=== PATIENT | male | born 1970 | race Caucasian/White ===

== ENCOUNTER 2019-03-08 12:15 | Emergency (ER) | payer OTHER, BC ==
[~2019-03-08] VITALS: Ht 175.3 cm; Wt 81.2 kg
[~2019-03-08 12:15] MED LIST: ADVIL200 M1 PO; BACTRIM DS TAB1 EACH PO; CELECOXIB100 MG PO; ESCITALOPRAM OX10 MG PO; GABAPENTIN300 MG PO; KEFLEX500 MG PO; NORCO 5-325 TA1 EACH PO; ULTRAM50 MG PO
--- OUTSIDE RECORDS SUMMARY | 2019-03-08 12:18 | XMS ---
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 Rylee has no Care Guidelines for this patient. Paras VISIT COUNT (12 MO.) [facility] NOTE: Visits indicate total known visits. ED/C VISIT TRACKING (12 MO.) 03/08/2019 12:[facility] [place] TYPE: Emergency COMPLAINT: - RIGHT KNEE PAIN 03/04/2019 11:[address] [facility] [place] TYPE: Emergency COMPLAINT: - RIGHT KNEE PAIN, WC INJURY DIAGNOSES: - Unspecified injury of right lower leg, initial encounter - Unspecified injury of left lower leg, initial encounter - Nicotine dependence, unspecified, uncomplicated - Other bilingual customer service (current) drug therapy - Cellulitis of right lower limb INPATIENT VISIT TRACKING (12 MO.) No inpatient visits to display in this time frame [email or web address]
[2019-03-08] MEDS ORDERED: NORCO 5-325 TA1 EACH PO (15:15)
[2019-03-08] MEDS ORDERED: KEFLEX500 MG PO (15:15)
[2019-03-08] MEDS ORDERED: BACTRIM DS TAB1 EACH PO (15:15)
== END 2019-03-08 15:29 | disposition home or self-care (01) ==
LOC: ED 12:15
DX: L02.415 Cutaneous abscess of right lower limb (principal); L03.115 Cellulitis of right lower limb; F17.200 Nicotine dependence, unspecified, uncomplicated; Z79.899 Other long term (current) drug therapy
CPT/HCPCS: 10060; 76882; 80053; 85025; 99284-25; J0690; J1885; J3010

== ENCOUNTER 2019-03-15 17:21 | Emergency (ER) | payer OTHER, BC ==
[~2019-03-15] VITALS: Ht 175.3 cm; Wt 81.2 kg
--- OUTSIDE RECORDS SUMMARY | 2019-03-15 17:24 | XMS ---
PreManage Notification: VAHID NGO Security Director Of Home Care Hospice Events No recent Security Events currently on file CRITERIA MET - [facility] - 2 Visits in 30 Days CARE PROVIDERS TAO ENCINAS Nurse Practitioner: 03/09/2019-Current PHONE: Unknown Rylee has no Care Guidelines for this patient. Paras VISIT COUNT (12 MO.) 3 [facility] TOTAL 3 NOTE: Visits indicate total known visits. ED/C VISIT TRACKING (12 MO.) 03/15/2019 17:22 [facility] [place] TYPE: Emergency COMPLAINT: - WOUND CARE 03/08/2019 12:16 [facility] [place] TYPE: Emergency COMPLAINT: - RIGHT KNEE PAIN/SWELLING DIAGNOSES: - Other specified soft tissue disorders - Nicotine dependence, unspecified, uncomplicated - Other dedicated intermodal truck driver (current) drug therapy - Cutaneous abscess of right lower limb - Cellulitis of right lower limb 03/04/2019 11:22 [facility] [place] TYPE: Emergency COMPLAINT: - RIGHT KNEE PAIN, WC INJURY DIAGNOSES: - Unspecified injury of right lower leg, initial encounter - Unspecified injury of left lower leg, initial encounter - Nicotine dependence, unspecified, uncomplicated - Other dedicated intermodal truck driver (current) drug therapy - Cellulitis of right lower limb INPATIENT VISIT TRACKING (12 MO.) No inpatient visits to display in this time frame [id number]
== END 2019-03-15 18:21 | disposition home or self-care (01) ==
LOC: ED 17:21
DX: L02.415 Cutaneous abscess of right lower limb (principal); F17.200 Nicotine dependence, unspecified, uncomplicated; Z79.899 Other long term (current) drug therapy
CPT/HCPCS: 99282

== ENCOUNTER 2019-04-28 16:47 | Emergency (ER) | payer OTHER, BC ==
[~2019-04-28] VITALS: Ht 175.3 cm; Wt 81.2 kg
--- OUTSIDE RECORDS SUMMARY | ~2019-04-28 | XMS | Clinical Summary ---
Demographics + + + | Address | [address] | | | [place] [address] | + + + | Home Phone | | + + + | Preferred Language | Unknown | + + + | Marital Status | | + + + | Restorationism Affiliation | 1013 | + + + | Race | Unknown | + + + | Ethnic Group | Unknown | + + + Author + + + | Author | [facility] (Historical as of | | | 03-04-19) | + + + | Organization | [facility] (Historical as of | | | 03-04-19) | + + + | Address | Unknown | + + + | Phone | Unavailable | + + + Support + + + + + | Name | Relationship | Address | Phone | + + + + + | Yolanda Elliott | ECON | [place] | | | | | [address] | | + + + + + Care Team Providers + +------+ + | Care Twill Cutter Name | Role | Phone | + +------+ + | Heather Velazquez NP | PP | | + +------+ + Allergies Not on File Current Medications Not on file Active Problems Not on file Social History + +-------+ +--------+------+ | Tobacco Use | Types | Packs/Day | Years | Date | | | | | Used | | + +-------+ +--------+------+ | Never Assessed | | | | | + +-------+ +--------+------+ + + + | Sex Assigned at | Date Recorded | | | | + + + | Not on file | | + + + Plan of Treatment + + + + + | Health Maintenance | Due Date | Last Done | Comments | + + + + + | Vaccine: | | | | | Dtap/Tdap/Td (1 - | 9 | | | | Tdap) | | | | + + + + + | Vaccine: Influenza | | | | | (#1) | 9 | | | + + + + + Results Not on filefrom Last 3 Months Insurance + +--------+ +------+-------+ + | Payer | Benefi | Subscriber | Type | Phone | Address | | | t Plan | ID | | | | | | / | | | | | | | Group | | | | | + +--------+ +------+-------+ + | REGENCE | REGENC | [id number] | | | | | | E-OREG | 7 | | | | | | ON | | | | | + +--------+ +------+-------+ + | MEDICAID | EASTER | [id number] | | | [address] | | | N | | | | [place] | | | [place] | | | | [address] | | | FOREST RANGER TECHNICIAN | | | | | + +--------+ +------+-------+ + + +--------+ +--------+ + + | Guarantor Name | Accoun | Relation to | Date | Phone | Billing Address | | | t Type | Patient | of | | | | | | | | | | + +--------+ +--------+ + + | DALE NOG | Person | Self | [birth year] | Home: | [address] | | | [place] | | 1970 | [phone] | [place] | | | [place]y | | | [phone] | [phone] | + +--------+ +--------+ + +"
--- OUTSIDE RECORDS SUMMARY | ~2019-04-28 | XMS | Clinical Summary ---
Demographics + + + | Address | [address] | | | [place] [address] | + + + | Home Phone | | + + + | Preferred Language | Unknown | + + + | Marital Status | | + + + | Yazidism Affiliation | 1013 | + + + | Race | Unknown | + + + | Ethnic Group | Unknown | + + + Author + + + | Author | [facility] | | | and [place] | + + + | Organization | [facility] | | | and [place] | + + + | Address | Unknown | + + + | Phone | Unavailable | + + + Support + + + + + | Name | Relationship | Address | Phone | + + + + + | Yolanda Elliott | ECON | [place] | | | | | [phone] | | + + + + + Care Team Providers + +------+ + | Care Fast Food Fry Cook Name | Role | Phone | + +------+ + | Bakari Rasheed MD | PCP | | + +------+ + Allergies Not on File Medications Not on file Active Problems Not [...] on file | | + + + + + + + | Job Start Date | Occupation | Industry | + + + + | Not on file | Not on file | Not on file | + + + + + + + + | Travel History | Travel Start | Travel End | + + + + + + | No recent travel history available. | + + Last Filed Vital Signs Not on file Plan of Treatment + + + + [...] Not on filefrom Last 3 Months Insurance +-------+--------+ +--------+-------+---------+------+ | Payer | Benefi | Subscriber | Effect | Phone | Address | Type | | | t Plan | ID | abhi | | | | | | / | | Dates | | | | | | Group | | | | | | +-------+--------+ +--------+-------+---------+------+ | BCBS | BCBS | [id number] | 07/19/19 | | | PPO | | | OOS | 7 | 16-Pre | | | | | | PPO | | sent | | | | +-------+--------+ +--------+-------+---------+------+ + +--------+ +--------+ + + | Guarantor Name | Accoun | Relation to | Date | Phone | Billing Address | | | t Type | Patient | of | | | | | | | | | | + +--------+ +--------+ + + | Dale Scales | Person | Self | [birth year] | | [address] | | | [place] | | 1970 | [phone] | [place] | | | [place]y | | | [address] (Home) | [phone] | + +--------+ +--------+ + + Advance Directives Patient has advance care planning documents on file. For more information, please contact:[facility] [place] [address]"
--- OUTSIDE RECORDS SUMMARY | ~2019-04-28 | XMS | Clinical Summary ---
Demographics + + + | Address | [address] | | | [place] [address] | + + + | Home Phone | | + + + | Preferred Language | Unknown | + + + | Marital Status | | + + + | Sabianist Affiliation | 1013 | + + + | Race | Unknown | + + + | Ethnic Group | Unknown | + + + Author + + + | Author | [facility] (Historical as of | | | 03-04-19) | + + + | Organization | [facility] (Historical as of | | | 03-04-19) | + + + | Address | Unknown | + + + | Phone | Unavailable | + + + Support + + + + + | Name | Relationship | Address | Phone | + + + + + | Yolanda Elliott | ECON | [place] | | | | | [address] | | + + + + + Care Team Providers + +------+ + | Care Automation Lead Name | Role | Phone | + [...] +------+-------+ + | REGENCE | REGENC | [id number] | | | | | | E-[place] | 7 | | | | | | ON | | | | | + +--------+ +------+-------+ + | MEDICAID | EASTER | [id number] | | | [address] | | | N | | | | [place] | | | [place] | | | | [phone] | | | PARKING PATROLLER | | | | | + +--------+ +------+-------+ + + +--------+ +--------+ + + | Guarantor Name | Accoun | Relation to | Date | Phone | Billing Address | | | t Type | Patient | of | | | | | | | | | | + +--------+ +--------+ + + | DALE NGO | Person | Self | [birth year] | Home: | [address] | | | [place] | | 1970 | [phone] | [place] | | | [place] | | | [phone] | [phone] | + +--------+ +--------+ + +"
--- OUTSIDE RECORDS SUMMARY | ~2019-04-28 | XMS | Clinical Summary ---
Demographics + + + | Address | [address] | | | [place] [address] | + + + | Home Phone | | + + + | Preferred Language | Unknown | + + + | Marital Status | | + + + | Bahai Affiliation | 1013 | + + + | Race | Unknown | + + + | Ethnic Group | Unknown | + + + Author + + + | Author | [facility] | | | and [place] | + + + | Organization | [facility] | | | and [place] | + + + | Address | Unknown | + + + | Phone | Unavailable | + + + Support + + + + + | Name | Relationship | Address | Phone | + + + + + | Yolanda Elliott | ECON | [place] | | | | | [address] | | + + + + + Care Team Providers + +------+ + | Care Machine Inker Name | Role | Phone | + +------+ + | Bkaari Rasheed MD | PCP | | + [...] +-------+--------+ +--------+-------+---------+------+ | BCBS | BCBS | [id number] | 07/19/19 | | | PPO | [...] [place] | | | [address] (Home) | [phone] | + +--------+ +--------+ + + Advance Directives Patient has advance care planning documents on file. For more information, please contact:[facility] [place] [address]"
[~2019-04-28 16:47] MED LIST changes: -ESCITALOPRAM OX10 MG PO
--- OUTSIDE RECORDS SUMMARY | 2019-04-28 16:50 | XMS ---
PreManage Notification: VAHID NGO Security Fruit Cutter Events No recent Security Events currently on file CRITERIA MET - [facility] CARE PROVIDERS TAO ENCINAS Nurse Practitioner: 03/09/2019-Current PHONE: Unknown Rylee has no Care Guidelines for this patient. ENoa VISIT COUNT (12 MO.) 4 [facility] TOTAL 4 NOTE: Visits indicate total known visits. ED/UCC VISIT TRACKING (12 MO.) 04/28/2019 16:47 [facility] [place] TYPE: Emergency COMPLAINT: - HEAD INJURY 03/15/2019 17:22 [facility] [place] TYPE: Emergency COMPLAINT: - ABSCESS DIAGNOSES: - Cutaneous abscess of right lower limb - Other penitentiary (current) drug therapy - Nicotine dependence, unspecified, uncomplicated 03/08/2019 12:16 [facility] [place] TYPE: Emergency COMPLAINT: - RIGHT KNEE PAIN/SWELLING DIAGNOSES: - Other specified soft tissue disorders - Nicotine dependence, unspecified, uncomplicated - Other penitentiary (current) drug therapy - Cutaneous abscess of right lower limb - Cellulitis of right lower limb 03/04/2019 11:[address] [facility] [place] TYPE: Emergency COMPLAINT: - RIGHT KNEE PAIN, WC INJURY DIAGNOSES: - Unspecified injury of right lower leg, initial encounter - Unspecified injury of left lower leg, initial encounter - Nicotine dependence, unspecified, uncomplicated - Other termite treater (current) drug therapy - Cellulitis of right lower limb INPATIENT VISIT TRACKING (12 MO.) No inpatient visits to display in this time frame [email or web address]
[2019-04-28] MEDS ORDERED: ESCITALOPRAM OX10 MG PO (17:06)
== END 2019-04-28 19:00 | disposition home or self-care (01) ==
LOC: ED 16:47
DX: S09.90XA Unspecified injury of head, initial encounter (principal); S16.1XXA Strain of muscle, fascia and tendon at neck level, initial encounter; W17.89XA Other fall from one level to another, initial encounter; F17.200 Nicotine dependence, unspecified, uncomplicated; Z79.899 Other long term (current) drug therapy
CPT/HCPCS: 72040; 99283; A9270

== ENCOUNTER 2020-12-25 19:15 | Emergency (ER) | payer OTHER ==
[~2020-12-25] VITALS: Ht 175.3 cm; Wt 91.0 kg
[~2020-12-25 19:15] MED LIST changes: +AMITRIPTYLINE150 MG PO; +AZITHROMYCIN500 MG PO; +CEFPODOXIME PR200 MG PO; +ESCITALOPRAM OX10 MG PO; +GABAPENTIN600 MG PO
[2020-12-25] MEDS ORDERED: DICLOFENAC SODI75 MG PO (19:27)
== END 2020-12-25 20:48 | disposition home or self-care (01) ==
LOC: ED 19:15
DX: S61.411A Laceration without foreign body of right hand, initial encounter (principal); S00.31XA Abrasion of nose, initial encounter; Z23 Encounter for immunization; W22.8XXA Striking against or struck by other objects, initial encounter; F17.200 Nicotine dependence, unspecified, uncomplicated
CPT/HCPCS: 12002; 90471; 90715; 99282-25

== ENCOUNTER 2022-03-30 14:06 | Emergency (ER) | payer OTHER ==
[~2022-03-30] VITALS: Ht 175.3 cm; Wt 91.0 kg
[~2022-03-30 14:06] MED LIST changes: +DICLOFENAC SODI75 MG PO
--- OUTSIDE RECORDS SUMMARY | 2022-03-30 14:11 | XMS ---
PreManage Notification: VAHID NGO Security Air Lift Operator Events No recent Security Events currently on file [facility] MET [facility] TAO ENCINAS Nurse Practitioner: Family 03/09/2019-Current PHONE: Unknown BJ KOVACS [facility] Medicine 02/26/2020-Current PHONE: Unknown Rylee has no Care Guidelines for this patient. Care History Medical/Surgical 05/01/2019 [facility] - Patient is currently established with [facility]. If patient is seen in the ED during business hours. Please contact CHWs at [facility]. Care Recommendation: This patient has had 5 or more Emergency Department visits in the last 12 months.\T\nbsp; Patient requires education on the scope and purpose of the ED as an acute care provider not a Primary Care Provider and should not be utilized for chronic conditions.\T\nbsp; These are guidelines and the provider should exercise clinical judgment when providing care. E.D. VISIT COUNT (12 MO.) 1 [facility] TOTAL 1 NOTE: Visits indicate total known visits. ED/UCC VISIT TRACKING (12 MO.) 03/30/2022 14:07 [facility] [place] TYPE: Emergency COMPLAINT: - SHAKY SWEATY, NAUSEA, UNSTEADY GAIT INPATIENT VISIT TRACKING (12 MO.) No inpatient visits to display in this time frame [email or web address]
[2022-03-30] MEDS ORDERED: CELECOXIB100 MG PO (14:22)
[2022-03-30] MEDS ORDERED: HYDROXYZINE HCL50 MG PO (14:22)
--- NOTE | 2022-03-30 20:12 | EKG ---
[facility] [address] [place] [address] Signed Normal sinus rhythm Nonspecific intraventricular block Abnormal ECG When compared with ECG of 24-FEB-2020 11:56, QRS duration has increased Confirmed by OMID MENDOSA MD ([id number]) on 03/30/2022 8:11:44 PM Electronically Signed By: OMID MENDOSA MD 03/30/222011 PATIENT NAME: VAHID NGO ISAC Electrocardiogram DATE OF : 70 PHYSICIAN: OMID MENDOSA MD REPORT #: [id number] REPORT IS CONFIDENTIAL AND NOT TO BE RELEASED WITHOUT AUTHORIZATION
== END 2022-03-30 17:00 | disposition home or self-care (01) ==
LOC: ED 14:06
DX: T42.6X1A Poisoning by other antiepileptic and sedative-hypnotic drugs, accidental (unintentional), initial encounter (principal); R25.1 Tremor, unspecified; F17.200 Nicotine dependence, unspecified, uncomplicated; Z79.899 Other long term (current) drug therapy
CPT/HCPCS: 36415; 80053; 81001; 84439; 84443; 85025; 93005; 93010; 99284-25; G0480

== ENCOUNTER 2022-08-03 14:04 | Emergency (ER) | payer OTHER ==
[~2022-08-03] VITALS: Ht 175.3 cm; Wt 90.7 kg
[~2022-08-03 14:04] MED LIST changes: +HYDROXYZINE HCL50 MG PO
[2022-08-03] MEDS ORDERED: LEVOFLOXACIN500 MG PO (19:15)
== END 2022-08-03 19:30 | disposition home or self-care (01) ==
LOC: ED 14:04
DX: R10.31 Right lower quadrant pain (principal); J18.9 Pneumonia, unspecified organism; F17.200 Nicotine dependence, unspecified, uncomplicated; Z79.899 Other long term (current) drug therapy
CPT/HCPCS: 36415; 74176; 80053; 81003; 83690; 85025; 85060; 99284-25

== ENCOUNTER 2022-09-23 13:20 | Emergency (ER) | payer OTHER ==
[~2022-09-23] VITALS: Ht 175.3 cm; Wt 91.0 kg
[~2022-09-23 13:20] MED LIST changes: +LEVOFLOXACIN500 MG PO
--- OUTSIDE RECORDS SUMMARY | 2022-09-23 13:25 | XMS ---
PreManage Notification: VAHID NGO Security Sap Integration Architect Events No recent Security Events currently on file CRITERIA MET - [facility] CARE PROVIDERS -[place]- Dentist: Restrike Hammer Operator [facility] PHONE: [phone] TAO ENCINAS Nurse Practitioner: Family 03/09/2019-Current PHONE: Unknown BJ KOVACS [facility] Medicine 02/26/2020-Current PHONE: Unknown Rylee has no Care Guidelines for this patient. Care History Medical/Surgical 05/01/2019 [facility] - Patient is currently established with [facility]. If patient is seen in the ED during business hours. Please contact CHWs at [facility]. Care Recommendation: This patient has had 5 [...] providing care. E.D. VISIT COUNT (12 MO.) 3 [facility] TOTAL 3 NOTE: Visits indicate total known visits. ED/C VISIT TRACKING (12 MO.) 09/23/2022 13:22 [facility] [place] TYPE: Emergency COMPLAINT: - SOB, L SIDE RIB PAIN, DIZZY, SHAKY 08/03/2022 14:05 [facility] [place] TYPE: Emergency COMPLAINT: - SHAKY, R SIDE ABD PAIN, NAUSEA DIAGNOSES: - Right lower quadrant pain - Nicotine dependence, unspecified, uncomplicated - Other jail (current) drug therapy - Pneumonia, unspecified organism 03/30/2022 14:07 [facility] TYPE: Emergency COMPLAINT: - SHAKY SWEATY, NAUSEA, UNSTEADY GAIT DIAGNOSES: - Nicotine dependence, unspecified, uncomplicated - Other watermelon inspector (current) drug therapy - Poisoning by other antiepileptic and sedative-hypnotic drugs, accidental (unintentional), initial encounter - Tremor, unspecified INPATIENT VISIT TRACKING (12 MO.) No inpatient visits to display in this time frame [id number]
[2022-09-23] MEDS ORDERED: SLOW-MAG71.5 MG PO (16:18)
[2022-09-23] MEDS ORDERED: PREDNISONE20 MG PO (16:18)
[2022-09-23] MEDS ORDERED: ZITHROMAX250 MG PO (16:18)
--- NOTE | 2022-09-23 21:41 | EKG ---
[facility] [address] [facility] [place] [address] Signed Normal sinus rhythm Normal ECG When compared with ECG of 30-MAR-2022 14:12, QRS duration has decreased QT has shortened Confirmed by Ronan Cadet MD () on 09/23/2022 9:41:16 PM Electronically Signed By: ORNAN CADET MD 09/23/222140 PATIENT NAME: HUBERVAHID ISAC Electrocardiogram DATE OF : 70 PHYSICIAN: RONAN CADET MD REPORT #: [id number] REPORT IS CONFIDENTIAL AND NOT TO BE RELEASED WITHOUT AUTHORIZATION
== END 2022-09-23 16:40 | disposition home or self-care (01) ==
LOC: ED 13:20
DX: U07.1 COVID-19 (principal); J44.1 Chronic obstructive pulmonary disease with (acute) exacerbation; E83.42 Hypomagnesemia; F17.200 Nicotine dependence, unspecified, uncomplicated; Z79.899 Other long term (current) drug therapy
CPT/HCPCS: 36415; 71045; 80053; 83735; 84484; 85025; 87502; 93005; 93010; 94640; 94664; 96374; 99285-25; A9270; C9803; J1100; U0003

== ENCOUNTER 2022-10-02 10:01 | Emergency (ER) | payer OTHER ==
[~2022-10-02] VITALS: Ht 175.3 cm; Wt 103.0 kg
[~2022-10-02 10:01] MED LIST changes: +PREDNISONE20 MG PO; +SLOW-MAG71.5 MG PO; +ZITHROMAX250 MG PO
--- OUTSIDE RECORDS SUMMARY | 2022-10-02 10:04 | XMS ---
PreManage Notification: VAHID NGO Security Cardiovascular Or Nurse Events No recent Security Events currently on file CRITERIA MET - [facility] - 2 Visits in 30 Days - PDMP CARE PROVIDERS -[place]- Dentist: Product Management Consultant [facility] PHONE: [phone] TAO ENCINAS Nurse Practitioner: Family 03/09/2019-Current PHONE: Unknown BJ KOVACS [facility] Medicine 02/26/2020-Current PHONE: Unknown Rylee has no Care Guidelines for this patient. Care History Medical/Surgical 05/01/2019 [facility] - Patient is currently established with [facility]. If patient is seen in the ED during business hours. Please contact CHWs at [facility]. Care Recommendation: This patient has had 5 [...] providing care. E.D. VISIT COUNT (12 MO.) 4 [facility] TOTAL 4 NOTE: Visits indicate total known visits. ED/UCC VISIT TRACKING (12 MO.) 10/02/2022 10:03 [facility] [place] TYPE: Emergency COMPLAINT: - FEVER, SHAKY, FATIGUE, UNBALANCED 09/23/2022 13:22 [facility] TYPE: Emergency COMPLAINT: - SOB, L SIDE RIB PAIN, DIZZY, SHAKY DIAGNOSES: - Hypomagnesemia - Chronic obstructive pulmonary disease with (acute) exacerbation - Nicotine dependence, unspecified, uncomplicated - COVID-19 - Shortness of breath - Other retirement (current) drug therapy 08/03/2022 14:05 [facility] TYPE: Emergency COMPLAINT: - SHAKY, R SIDE ABD PAIN, NAUSEA DIAGNOSES: - Other retirement (current) drug therapy - Pneumonia, unspecified organism - Right lower quadrant pain - Nicotine dependence, unspecified, uncomplicated 03/30/2022 14:07 [facility] TYPE: Emergency COMPLAINT: - SHAKY SWEATY, NAUSEA, UNSTEADY GAIT DIAGNOSES: - Poisoning by other antiepileptic and sedative-hypnotic drugs, accidental (unintentional), initial encounter - Tremor, unspecified - Nicotine dependence, unspecified, uncomplicated - Other salvage determiner (current) drug therapy INPATIENT VISIT TRACKING (12 MO.) No inpatient visits to display in this time frame [id number]
[2022-10-02] MEDS ORDERED: LEVOFLOXACIN500 MG PO (15:43)
== END 2022-10-02 15:58 | disposition home or self-care (01) ==
LOC: ED 10:01
DX: J18.9 Pneumonia, unspecified organism (principal); F17.200 Nicotine dependence, unspecified, uncomplicated; Z79.899 Other long term (current) drug therapy
CPT/HCPCS: 36415; 71045; 71260; 74177; 76705; 80053; 81003; 83605; 85025; 85610; 99284-25; A9270; J0696; J7030; Q9967

== ENCOUNTER 2022-11-07 14:11 | Emergency (ER) | payer OTHER ==
[~2022-11-07] VITALS: Ht 175.3 cm; Wt 92.8 kg
--- OUTSIDE RECORDS SUMMARY | 2022-11-07 14:14 | XMS ---
PreManage Notification: VAHID NGO Security Branch Credit Counselor Events No recent Security Events currently on file CRITERIA MET - [facility] CARE PROVIDERS -[place]- Dentist: Train Conductor Count Includes [facility] PHONE: [phone] TAO ENCINAS Nurse Practitioner: Family 03/09/2019-Current PHONE: Unknown BJ KOVACS [facility] Medicine 02/26/2020-Current PHONE: Unknown Rylee has no Care Guidelines for this patient. Care History Medical/Surgical 05/01/2019 [facility] - Patient is currently established with [facility]. If patient is seen in the ED during business hours. Please contact CHWs at [facility]. Care Recommendation: This patient has had 5 [...] providing care. E.D. VISIT COUNT (12 MO.) 5 [facility] TOTAL 5 NOTE: Visits indicate total known visits. ED/C VISIT TRACKING (12 MO.) 11/07/2022 14:13 [facility] [place] TYPE: Emergency COMPLAINT: - L WRIST, ELBOW, ARM INJURY 10/02/2022 10:03 [facility] [place] TYPE: Emergency COMPLAINT: - FEVER, SHAKY, FATIGUE, UNBALANCED DIAGNOSES: - Pneumonia, unspecified organism - Nicotine dependence, unspecified, uncomplicated - Fever, unspecified - Other longterm (current) drug therapy 09/23/2022 13:22 [facility] [place] TYPE: Emergency COMPLAINT: - SOB, L SIDE RIB PAIN, DIZZY, SHAKY DIAGNOSES: - Other long term care pharmacist (current) drug therapy - Hypomagnesemia - Chronic obstructive pulmonary disease with (acute) exacerbation - Nicotine dependence, unspecified, uncomplicated - COVID-19 - Shortness of breath 08/03/2022 14:05 [facility] TYPE: Emergency COMPLAINT: - SHAKY, R SIDE ABD PAIN, NAUSEA DIAGNOSES: - Nicotine dependence, unspecified, uncomplicated - Other long term care pharmacist (current) drug therapy - Pneumonia, unspecified organism - Right lower quadrant pain 03/30/2022 14:07 [facility] TYPE: Emergency COMPLAINT: - SHAKY SWEATY, NAUSEA, UNSTEADY GAIT DIAGNOSES: - Other longterm (current) drug therapy - Poisoning by other antiepileptic and sedative-hypnotic drugs, accidental (unintentional), initial encounter - Tremor, unspecified - Nicotine dependence, unspecified, uncomplicated INPATIENT VISIT TRACKING (12 MO.) No inpatient visits to display in this time frame [id number]
[2022-11-07] MEDS ORDERED: PREGABALIN300 MG PO (14:34)
[2022-11-07] MEDS ORDERED: ESCITALOPRAM OX20 MG PO (14:34)
[2022-11-07] MEDS ORDERED: HYDROCODON-ACE1 EA10 PO (15:58)
[2022-11-07 16:31] VITALS: BP 106/66
== END 2022-11-07 16:31 | disposition home or self-care (01) ==
LOC: ED 14:11
DX: S52.122A Displaced fracture of head of left radius, initial encounter for closed fracture (principal); V00.131A Fall from skateboard, initial encounter; Y93.51 Activity, roller skating (inline) and skateboarding; F17.200 Nicotine dependence, unspecified, uncomplicated; Z79.899 Other long term (current) drug therapy
CPT/HCPCS: 73080; 73110

== ENCOUNTER 2022-12-07 13:00 | Emergency (ER) | payer OTHER ==
[~2022-12-07] VITALS: Ht 175.3 cm; Wt 89.8 kg
[~2022-12-07 13:00] MED LIST changes: +ESCITALOPRAM OX20 MG PO; +HYDROCODON-ACE1 EA10 PO; +PREGABALIN300 MG PO
--- OUTSIDE RECORDS SUMMARY | 2022-12-07 13:03 | XMS ---
PreManage Notification: VAHID NGO Security Umbrella Mender Events No recent Security Events currently on file CRITERIA MET - [facility] - [facility] - 2 Visits in 30 Days CARE PROVIDERS -[place]- Dentist: Metals Sales Representative [facility] PHONE: [phone] TAO ENCINAS Nurse Practitioner: Family 03/09/2019-Current PHONE: Unknown BJ KOVACS [facility] Medicine 02/26/2020-Current PHONE: Unknown Rylee has no Care Guidelines for this patient. Care History Medical/Surgical 05/01/2019 [facility] - [facility] providing care. E.D. VISIT COUNT (12 MO.) 6 [facility] TOTAL 6 NOTE: Visits indicate total known visits. ED/UCC VISIT TRACKING (12 MO.) 12/07/2022 13:00 [facility] [place] TYPE: Emergency COMPLAINT: - CHEST CONGESTION, COUGH, SIDES ACHE 11/07/2022 14:13 [facility] TYPE: Emergency COMPLAINT: - L WRIST, ELBOW, ARM INJURY DIAGNOSES: - Activity, roller skating (inline) and skateboarding - Displaced fracture of head of left radius, initial encounter for closed fracture - Fall from skateboard, initial encounter - Nicotine dependence, unspecified, uncomplicated - Other half-way (current) drug therapy - Pain in left elbow 10/02/2022 10:03 [facility] [place] TYPE: Emergency COMPLAINT: - FEVER, SHAKY, FATIGUE, UNBALANCED DIAGNOSES: - Fever, unspecified - Nicotine dependence, unspecified, uncomplicated - Other computer terminal operator (current) drug therapy - Pneumonia, unspecified organism 09/23/2022 13:22 [facility] TYPE: Emergency COMPLAINT: - SOB, L SIDE RIB PAIN, DIZZY, SHAKY DIAGNOSES: - Chronic obstructive pulmonary disease with (acute) exacerbation - COVID-19 - Hypomagnesemia - Nicotine dependence, unspecified, uncomplicated - Other computer terminal operator (current) drug therapy - Shortness of breath 08/03/2022 14:05 [facility] TYPE: Emergency COMPLAINT: - SHAKY, R SIDE ABD PAIN, NAUSEA DIAGNOSES: - Nicotine dependence, unspecified, uncomplicated - Other half-way (current) drug therapy - Pneumonia, unspecified organism - Right lower quadrant pain 03/30/2022 14:07 [facility] TYPE: Emergency COMPLAINT: - SHAKY SWEATY, NAUSEA, UNSTEADY GAIT DIAGNOSES: - Nicotine dependence, unspecified, uncomplicated - Other half-way (current) drug therapy - Poisoning by other antiepileptic and sedative-hypnotic drugs, accidental (unintentional), initial encounter - Tremor, unspecified INPATIENT VISIT TRACKING (12 MO.) No inpatient visits to display in this time frame [id number]
[2022-12-07] MEDS ORDERED: VENTOLIN HFA18 GM INH (17:32)
[2022-12-07] MEDS ORDERED: DOXYCYCLINE HY100 MG PO (17:32)
[2022-12-07] MEDS ORDERED: PREDNISONE20 MG PO (17:32)
[2022-12-07 17:38] VITALS: BP 138/72
== END 2022-12-07 17:38 | disposition home or self-care (01) ==
LOC: ED 13:00
DX: J18.9 Pneumonia, unspecified organism (principal); J44.0 Chronic obstructive pulmonary disease with (acute) lower respiratory infection; F17.200 Nicotine dependence, unspecified, uncomplicated; Z79.899 Other long term (current) drug therapy
CPT/HCPCS: 71046; 87502; 99283-25; U0003

== ENCOUNTER 2024-09-05 12:34 | Emergency (ER) | payer OTHER ==
[~2024-09-05] VITALS: Ht 175.3 cm; Wt 110.7 kg
[~2024-09-05 12:34] MED LIST changes: +DOXYCYCLINE HY100 MG PO; +VENTOLIN HFA18 GM INH
[2024-09-05] MEDS ORDERED: ACETAMINOPHEN 500 MG TAB PO ONE (12:45)
[2024-09-05] MEDS ORDERED: ATORVASTATIN CA80 MG PO (12:54)
[2024-09-05] MEDS ORDERED: ASPIRIN81 MG PO (12:54)
[2024-09-05] MEDS ORDERED: BUSPIRONE HCL15 MG PO (12:54)
[2024-09-05] MEDS ORDERED: METOPROLOL SUCC25 MG PO (12:54)
[2024-09-05] MEDS ORDERED: CELEBREX50 MG PO (12:55)
[2024-09-05] MEDS ORDERED: NAPROSYN500 MG PO (13:29)
[2024-09-05 13:40] VITALS: BP 144/90
== END 2024-09-05 13:40 | disposition home or self-care (01) ==
LOC: ED 12:34
DX: S93.402A Sprain of unspecified ligament of left ankle, initial encounter (principal); X50.1XXA Overexertion from prolonged static or awkward postures, initial encounter; F17.200 Nicotine dependence, unspecified, uncomplicated; Z79.82 Long term (current) use of aspirin; Z79.899 Other long term (current) drug therapy
CPT/HCPCS: 73610; 73630; 99283; A9270